=== PATIENT | female | born 1975 | race Caucasian/White ===

== ENCOUNTER 2018-08-18 01:59 | Emergency (ER) | payer OTHER ==
[~2018-08-18] VITALS: Ht 170.2 cm; Wt 59.0 kg
[~2018-08-18 01:59] MED LIST: FURO-144 PO; SPIR50TA5 PO; TEMA15CA PO
--- NOTE | 2018-08-18 03:00 | NUR ---
TO BED 1 AMBULATORY C/O "ACSITES" X1 WEEK, CHRONIC ABDOMINAL PAIN. PT AAOX4 NO ACUTE DISTRESS NOTED, RESP EVEN AND UNLABORED. PENDING ER MD BARAHONA.
--- NOTE | 2018-08-18 03:26 | NUR ---
ER MD AT BEDSIDE TO EVAL PT WITH ORDERS RECEIVED. WILL CARRY OUT ORDERS.
--- NOTE | 2018-08-18 03:40 | NUR ---
URINE SAMPLE COLLECTED AND SENT TO LAB.
[2018-08-18 04:14] LABS: APPEARANCE,URINE CLEAR (CLEAR); BILIRUBIN,URINE NEGATIVE (NEGATIVE); BLOOD, URINE NEGATIVE Ery/uL (NEGATIVE); COLOR,URINE YELLOW (YELLOW); KETONES,URINE NEGATIVE (NEGATIVE); LEUKOCYTE ESTERASE ,URINE TRACE (NEGATIVE); NITRITE, URINE NEGATIVE (NEGATIVE); PROTEIN,URINE NEGATIVE (NEGATIVE); UGLUCOSE NEGATIVE (NEGATIVE); UROBILINOGEN,URINE 0.2 EU/dL (0.2)
[2018-08-18 04:15] LABS: BASOPHILS # (AUTO) 0.1 /CMM (0.0-0.2); BASOPHILS % (AUTO) 0.8 % (0.0-2.0); EOSINOPHILS % (AUTO) 0.7 % (0.0-6.0); HEMATOCRIT 32 % (33-45); HEMOGLOBIN 10.5 g/dL (11.5-14.8); LYMPHOCYTES # (AUTO) 2.3 /CMM (0.8-4.8); MEAN CORPUSCULAR HGB CONC 33 g/dl (31.0-36.0); MEAN CORPUSCULAR VOLUME 84 fL (82-100); MONOCYTES # (AUTO) 0.9 /CMM (0.1-1.30); NEUTROPHILS % (AUTO) 67.5 % (43.0-81.0); PLATELET COUNT (AUTO) 241 /CMM (150-450); RED BLOOD CELL COUNT(AUTO) 3.82 MIL/uL (4.0-5.2); WHITE BLOOD COUNT (AUTO) 10.4 K/uL (4.3-11.0)
[2018-08-18 04:24] LABS: BACTERIA,URINE None seen /HPF (None Seen); RBC,URINE 0-2 /HPF (0-2); SQUAMOUS EPITHELIAL CELL,UR Moderate /HPF (None Seen); WBC,URINE 0-2 /HPF (0-3)
[2018-08-18 04:25] LABS: HYALINE CASTS, URINE Few /LPF (None Seen); MUCUS,URINE Few /LPF (None Seen)
[2018-08-18] MEDS ORDERED: ONDANSETRON HCL/PF - ER 4 MG/2 ML VIAL IV ONE (04:30)
[2018-08-18 04:32] LABS: CALCIUM, SERUM 8.3 mg/dL (8.5-10.1); CREATININE 1.5 mg/dL (0.6-1.3); POTASSIUM 4.2 mmol/L (3.5-5.1)
[2018-08-18 04:37] LABS: BILIRUBIN,DIRECT 0.3 mg/dL (0.0-0.2); BILIRUBIN,TOTAL 0.5 mg/dL (0.2-1.0); TOTAL PROTEIN, SERUM 8.5 g/dL (6.4-8.2)
[2018-08-18] MEDS ORDERED: ONDANSETRON HCL/PF 4 MG/2 ML VIAL ONE (04:42)
--- NOTE | 2018-08-18 05:05 | NUR ---
ER MD AT BEDSIDE TALKING TO PT REGARDING LAB RESULTS AND DISCHARGE.
--- NOTE | 2018-08-18 06:21 | NUR ---
Patient discharged to home in stable condition. Written and verbal after care instructions given. Patient verbalizes understanding of instruction. IV removed. Catheter intact and site benign. Pressure and 4x4 applied to site. No bleeding noted.
[2018-08-18 06:22] VITALS: BP 127/63
== END 2018-08-18 06:23 | disposition home or self-care (01) ==
LOC: ER 02:00
DX: R18.8 Other ascites (principal); R94.31 Abnormal electrocardiogram [ECG] [EKG]; I25.10 Atherosclerotic heart disease of native coronary artery without angina pectoris; F41.9 Anxiety disorder, unspecified; I25.2 Old myocardial infarction; Z87.19 Personal history of other diseases of the digestive system; Z98.890 Other specified postprocedural states; Z85.3 Personal history of malignant neoplasm of breast; Z79.899 Other long term (current) drug therapy
CPT/HCPCS: 36415; 80048; 80076; 81001; 83690; 84484; 84702; 85025; 85730; 93005; 96374; 99284; A4606; J2405; Z7610; 81000-TC

== ENCOUNTER 2018-08-30 04:19 | Inpatient (IN) | payer OTHER ==
[~2018-08-30] VITALS: Ht 171.4 cm; Wt 68.0 kg
[2018-08-30] MEDS ORDERED: MORPHINE SULFATE INJ 2 MG/ML DISP.SYRIN IV ONE (04:30)
[2018-08-30] MEDS ORDERED: ONDANSETRON HCL/PF 4 MG/2 ML VIAL IVP ONE (04:30)
[2018-08-30] MEDS ORDERED: ONDANSETRON HCL/PF 4 MG/2 ML VIAL ONE (04:36)
[2018-08-30] MEDS ORDERED: MORPHINE SULFATE INJ 4 MG/ML DISP.SYRIN ONE (04:47)
[2018-08-30] MEDS ORDERED: SPIR25TA6 PO (05:00)
[2018-08-30] MEDS ORDERED: TEMA15CA PO (05:00)
[2018-08-30] MEDS ORDERED: BUME2TAB3 PO (05:00)
[2018-08-30 05:04] LABS: BASOPHILS # (AUTO) 0.1 /CMM (0.0-0.2); BASOPHILS % (AUTO) 1.1 % (0.0-2.0); EOSINOPHILS % (AUTO) 0.5 % (0.0-6.0); HEMATOCRIT 32 % (33-45); HEMOGLOBIN 10.4 g/dL (11.5-14.8); LYMPHOCYTES # (AUTO) 1.6 /CMM (0.8-4.8); MEAN CORPUSCULAR HGB CONC 33 g/dl (31.0-36.0); MEAN CORPUSCULAR VOLUME 91 fL (82-100); MONOCYTES # (AUTO) 1.7 /CMM (0.1-1.30); MONOCYTES % (AUTO) 17.1 % (2.0-12.0); NEUTROPHILS # (AUTO) 6.2 /CMM (1.8-8.9); NEUTROPHILS % (AUTO) 64.3 % (43.0-81.0); PLATELET COUNT (AUTO) 277 /CMM (150-450); WHITE BLOOD COUNT (AUTO) 9.7 K/uL (4.3-11.0)
[2018-08-30 05:14] LABS: CALCIUM, SERUM 8.2 mg/dL (8.5-10.1); CREATININE 1.6 mg/dL (0.6-1.3); POTASSIUM 3.8 mmol/L (3.5-5.1)
[2018-08-30 05:20] LABS: ALBUMIN 2.1 g/dL (3.4-5.0); BILIRUBIN,DIRECT 0.4 mg/dL (0.0-0.2); BILIRUBIN,TOTAL 0.6 mg/dL (0.2-1.0); TOTAL PROTEIN, SERUM 7.4 g/dL (6.4-8.2)
[2018-08-30] MEDS ORDERED: PIPERACILLIN /TAZOBACTAM 3.375 G VIAL IV ONE (05:57)
[2018-08-30] MEDS ORDERED: PIPERACILLIN /TAZOBACTAM 3.375 G in IV D5W 50 ML IV ONE (06:00)
[2018-08-30] MEDS ORDERED: IV NS 0.9% 1,000 ML BAG IV ONE (06:00)
[2018-08-30 06:19] LABS: APPEARANCE,URINE SL CLOUDY (CLEAR); BILIRUBIN,URINE NEGATIVE (NEGATIVE); BLOOD, URINE NEGATIVE Ery/uL (NEGATIVE); COLOR,URINE YELLOW (YELLOW); KETONES,URINE NEGATIVE (NEGATIVE); LEUKOCYTE ESTERASE ,URINE TRACE (NEGATIVE); NITRITE, URINE NEGATIVE (NEGATIVE); PH,URINE 5.5 (5.0-8.0); PROTEIN,URINE NEGATIVE (NEGATIVE); UGLUCOSE NEGATIVE (NEGATIVE); UROBILINOGEN,URINE 0.2 EU/dL (0.2)
[2018-08-30] MEDS ORDERED: MAG HYDROX/AL HYDROX/SIMETH 30 ML UDC PO PRN (07:00)
[2018-08-30] MEDS ORDERED: ZOLPIDEM TARTRATE 5 MG TABLET PO PRN (07:00)
[2018-08-30] MEDS ORDERED: ACETAMINOPHEN 325 MG TABLET PO PRN (07:00)
[2018-08-30] MEDS ORDERED: ONDANSETRON HCL/PF 4 MG/2 ML VIAL IVP PRN (07:00)
[2018-08-30] MEDS ORDERED: MAGNESIUM HYDROXIDE 30 ML UDC PO PRN (07:00)
[2018-08-30] MEDS ORDERED: Z GUARD REMEDY 2 OZ OINT TP PRN (07:00)
[2018-08-30 07:18] LABS: RBC,URINE NONE SEEN /HPF (0-2); WBC,URINE 0-2 /HPF (0-3)
[2018-08-30 07:19] LABS: BACTERIA,URINE None seen /HPF (None Seen); SQUAMOUS EPITHELIAL CELL,UR Few /HPF (None Seen)
[2018-08-30 08:00] VITALS: BP 83/52
[2018-08-30] MEDS ORDERED: PANT40TA2 PO (08:20)
[2018-08-30] MEDS ORDERED: LORA-259 PO (08:20)
[2018-08-30] MEDS: HYDROCODONE/APAP 5/325MG 1 EACH TABLET PO PRN ×2 (10:12→16:02)
[2018-08-30] MEDS ORDERED: LIDOCAINE 1% INJ 50 ML MDV IJ ONE (10:41)
[2018-08-30] MEDS ORDERED: LORAZEPAM INJ 2 MG/ML VIAL IV ONE (11:30)
[2018-08-30] MEDS ORDERED: ALBUMIN 25% 12.5 GM in PREMIX 1 EA IV PRN (13:00)
[2018-08-30] MEDS ORDERED: LORAZEPAM INJ 2 MG/ML VIAL IV PRN (14:00)
[2018-08-30] MEDS ORDERED: PIPERACILLIN /TAZOBACTAM 3.375 G in IV D5W 100 ML IV SCH (14:00)
[2018-08-30 16:00] VITALS: BP 88/59
[2018-08-30] MEDS ORDERED: PIPERACILLIN /TAZOBACTAM 3.375 G in IV D5W 50 ML IV SCH (18:00)
[2018-08-30 20:00] VITALS: BP 94/44
[2018-08-30] MEDS: CEFTRIAXONE 1 G in IV D5W 50 ML IV SCH (20:02)
[2018-08-30 20:32] VITALS: BP 94/44
[2018-08-30] MEDS: HYDROCODONE/APAP 10/325MG 1 EA TABLET PO PRN (20:35)
[2018-08-31 02:09] VITALS: BP 95/59
[2018-08-31] MEDS: HYDROCODONE/APAP 10/325MG 1 EA TABLET PO PRN (02:09)
[2018-08-31 03:00] VITALS: BP 100/67
[2018-08-31 06:36] LABS: BASOPHILS # (AUTO) 0.1 /CMM (0.0-0.2); BASOPHILS % (AUTO) 0.8 % (0.0-2.0); EOSINOPHILS % (AUTO) 1.5 % (0.0-6.0); HEMATOCRIT 30 % (33-45); HEMOGLOBIN 9.9 g/dL (11.5-14.8); LYMPHOCYTES # (AUTO) 1.2 /CMM (0.8-4.8); LYMPHOCYTES % (AUTO) 15.4 % (20.0-44.0); MEAN CORPUSCULAR HGB CONC 33 g/dl (31.0-36.0); MEAN CORPUSCULAR VOLUME 90 fL (82-100); MONOCYTES # (AUTO) 1.2 /CMM (0.1-1.30); MONOCYTES % (AUTO) 16.2 % (2.0-12.0); NEUTROPHILS % (AUTO) 66.1 % (43.0-81.0); PLATELET COUNT (AUTO) 230 /CMM (150-450); RED BLOOD CELL COUNT(AUTO) 3.33 MIL/uL (4.0-5.2); WHITE BLOOD COUNT (AUTO) 7.6 K/uL (4.3-11.0)
[2018-08-31 06:54] LABS: ALBUMIN 1.7 g/dL (3.4-5.0); BILIRUBIN,TOTAL 0.6 mg/dL (0.2-1.0); MAGNESIUM 1.3 mg/dL (1.8-2.4); PHOSPHORUS 3.6 mg/dL (2.5-4.9); POTASSIUM 4.4 mmol/L (3.5-5.1); TOTAL PROTEIN, SERUM 6.5 g/dL (6.4-8.2)
[2018-08-31 07:24] LABS: EOSINOPHILS % (MANUAL) 2 % (0-4); LYMPHOCYTES % (MANUAL) 19 % (16-48); MONOCYTES % (MANUAL) 16 % (0-11.0); NEUTROPHILS % (MANUAL) 63 (42-76)
[2018-08-31 08:00] VITALS: BP 95/74
[2018-08-31] MEDS: THIAMINE HCL 100 MG TABLET PO SCH (08:19)
[2018-08-31] MEDS: FOLIC ACID 1 MG TABLET PO SCH (08:19)
[2018-08-31] MEDS: Magnesium 1GM/D5W 100ML PREMIX 100 ML IV SCH ×3 (10:38→12:40)
[2018-08-31] MEDS ORDERED: IV NS 0.9% 1,000 ML IV PRN (12:00)
[2018-08-31] MEDS: oxyCODONE IR immediate release 5 MG PO PRN ×2 (15:00→20:10)
[2018-08-31 16:00] VITALS: BP 113/69
[2018-08-31 16:36] LABS: APPEARANCE,URINE SL CLOUDY (CLEAR); BILIRUBIN,URINE NEGATIVE (NEGATIVE); BLOOD, URINE NEGATIVE Ery/uL (NEGATIVE); COLOR,URINE YELLOW (YELLOW); KETONES,URINE TRACE (NEGATIVE); LEUKOCYTE ESTERASE ,URINE NEGATIVE (NEGATIVE); NITRITE, URINE NEGATIVE (NEGATIVE); PH,URINE 5.5 (5.0-8.0); PROTEIN,URINE NEGATIVE (NEGATIVE); UGLUCOSE NEGATIVE (NEGATIVE); UROBILINOGEN,URINE 0.2 EU/dL (0.2)
[2018-08-31 16:53] LABS: URINE SODIUM, RANDOM < 5 mmol/l (40-220); URINE TOTAL PROTEIN 19.9 mg/dL (0-11.9)
[2018-08-31 18:32] LABS: EOSINOPHIL,URINE None Seen
[2018-08-31] MEDS: GABAPENTIN 300 MG CAPSULE PO SCH (18:53)
[2018-08-31] MEDS: CEFTRIAXONE 1 G in IV D5W 50 ML IV SCH (19:47)
[2018-08-31 20:00] VITALS: BP 102/72
[2018-08-31] MEDS: PANTOPRAZOLE 40 MG VIAL IV SCH (22:29)
[2018-09-01] MEDS: oxyCODONE IR immediate release 5 MG PO PRN ×4 (01:26→20:22)
[2018-09-01 06:41] LABS: BASOPHILS # (AUTO) 0.1 /CMM (0.0-0.2); EOSINOPHILS % (AUTO) 1.8 % (0.0-6.0); HEMATOCRIT 31 % (33-45); HEMOGLOBIN 10.3 g/dL (11.5-14.8); LYMPHOCYTES # (AUTO) 1.6 /CMM (0.8-4.8); LYMPHOCYTES % (AUTO) 17.8 % (20.0-44.0); MEAN CORPUSCULAR HGB CONC 33 g/dl (31.0-36.0); MEAN CORPUSCULAR VOLUME 90 fL (82-100); MONOCYTES # (AUTO) 1.4 /CMM (0.1-1.30); MONOCYTES % (AUTO) 15.7 % (2.0-12.0); NEUTROPHILS # (AUTO) 5.7 /CMM (1.8-8.9); NEUTROPHILS % (AUTO) 63.7 % (43.0-81.0); PLATELET COUNT (AUTO) 257 /CMM (150-450)
[2018-09-01 06:55] LABS: CALCIUM, SERUM 7.9 mg/dL (8.5-10.1); CREATININE 1.8 mg/dL (0.6-1.3); MAGNESIUM 2.1 mg/dL (1.8-2.4); POTASSIUM 5.3 mmol/L (3.5-5.1)
[2018-09-01] MEDS: THIAMINE HCL 100 MG TABLET PO SCH (07:26)
[2018-09-01] MEDS: FOLIC ACID 1 MG TABLET PO SCH (07:27)
[2018-09-01] MEDS: GABAPENTIN 300 MG CAPSULE PO SCH ×3 (07:27→16:51)
[2018-09-01 08:00] VITALS: BP 99/71
[2018-09-01] MEDS: FUROSEMIDE 40 MG/4 ML VIAL IV SCH ×2 (11:57→16:51)
[2018-09-01] MEDS: ALBUMIN 25% 25 GM in PREMIX 1 EA IV SCH ×2 (11:58→22:54)
[2018-09-01 12:08] LABS: PTH, INTACT 88 pg/mL (15-65)
[2018-09-01 16:00] VITALS: BP 98/61
[2018-09-01 20:00] VITALS: BP 100/66
[2018-09-01] MEDS: CEFTRIAXONE 1 G in IV D5W 50 ML IV SCH (20:22)
[2018-09-01] MEDS: PANTOPRAZOLE 40 MG VIAL IV SCH (22:54)
[2018-09-02] MEDS: oxyCODONE IR immediate release 5 MG PO PRN ×3 (03:36→10:45)
[2018-09-02 07:38] LABS: ALBUMIN 2.3 g/dL (3.4-5.0); CALCIUM, SERUM 8.3 mg/dL (8.5-10.1); CREATININE 1.4 mg/dL (0.6-1.3); POTASSIUM 5.1 mmol/L (3.5-5.1); TOTAL PROTEIN, SERUM 7.2 g/dL (6.4-8.2)
[2018-09-02 08:00] VITALS: BP 112/74
[2018-09-02] MEDS: THIAMINE HCL 100 MG TABLET PO SCH (08:36)
[2018-09-02] MEDS: GABAPENTIN 300 MG CAPSULE PO SCH ×3 (08:36→17:56)
[2018-09-02] MEDS: FOLIC ACID 1 MG TABLET PO SCH (08:36)
[2018-09-02] MEDS ORDERED: BUMETANIDE INJ 2 MG in IV NS 0.9% 32 ML IV ONE (12:30)
[2018-09-02 16:00] VITALS: BP 96/60
[2018-09-02 16:05] VITALS: BP 96/60
[2018-09-02 20:00] VITALS: BP 105/65
[2018-09-02] MEDS: CEFTRIAXONE 1 G in IV D5W 50 ML IV SCH (20:31)
[2018-09-02] MEDS: HYDROMORPHONE 1 MG/1 ML DISP.SYRIN IV PRN (22:20)
[2018-09-02] MEDS: PANTOPRAZOLE 40 MG VIAL IV SCH (22:26)
[2018-09-02] MEDS ORDERED: hydrOXYzine PAMOATE 25 MG CAPSULE PO PRN (23:30)
[2018-09-02] MEDS: DOXYCYCLINE 100 MG in IV D5W 100 ML IV SCH (23:30)
[2018-09-02] MEDS ORDERED: DOXYCYCLINE HYCLATE (100 MG) 100 MG TABLET PO ONE (23:45)
[2018-09-03] MEDS ORDERED: DOXYCYCLINE HYCLATE (100 MG) 100 MG TABLET PO SCH
[2018-09-03] MEDS: oxyCODONE IR immediate release 5 MG PO PRN ×3 (01:00→20:07)
[2018-09-03 06:57] LABS: BASOPHILS # (AUTO) 0.1 /CMM (0.0-0.2); BASOPHILS % (AUTO) 0.8 % (0.0-2.0); EOSINOPHILS % (AUTO) 0.9 % (0.0-6.0); HEMATOCRIT 29 % (33-45); HEMOGLOBIN 9.6 g/dL (11.5-14.8); LYMPHOCYTES # (AUTO) 1.4 /CMM (0.8-4.8); LYMPHOCYTES % (AUTO) 12.1 % (20.0-44.0); MEAN CORPUSCULAR HGB CONC 33 g/dl (31.0-36.0); MEAN CORPUSCULAR VOLUME 90 fL (82-100); MONOCYTES # (AUTO) 1.7 /CMM (0.1-1.30); MONOCYTES % (AUTO) 14.5 % (2.0-12.0); NEUTROPHILS # (AUTO) 8.5 /CMM (1.8-8.9); NEUTROPHILS % (AUTO) 71.7 % (43.0-81.0); PLATELET COUNT (AUTO) 237 /CMM (150-450); RED BLOOD CELL COUNT(AUTO) 3.26 MIL/uL (4.0-5.2); WHITE BLOOD COUNT (AUTO) 11.9 K/uL (4.3-11.0)
[2018-09-03 07:08] LABS: CALCIUM, SERUM 8.5 mg/dL (8.5-10.1); CREATININE 1.4 mg/dL (0.6-1.3); POTASSIUM 5.6 mmol/L (3.5-5.1)
[2018-09-03 08:00] VITALS: BP 109/65
[2018-09-03] MEDS: THIAMINE HCL 100 MG TABLET PO SCH (09:01)
[2018-09-03] MEDS: GABAPENTIN 300 MG CAPSULE PO SCH ×3 (09:01→16:32)
[2018-09-03] MEDS: FOLIC ACID 1 MG TABLET PO SCH (09:01)
[2018-09-03] MEDS: DOXYCYCLINE 100 MG in IV D5W 100 ML IV SCH ×2 (09:02→21:07)
[2018-09-03 09:17] LABS: *SPE A/G RATIO 0.5 (0.7-1.7); *SPE ALBUMIN 2.1 g/dL (2.9-4.4); *SPE ALPHA-1-GLOBULIN 0.3 g/dL (0.0-0.4); *SPE ALPHA-2-GLOBULIN 0.4 g/dL (0.4-1.0); *SPE GLOBULIN, TOTAL 3.9 g/dL (2.2-3.9); *SPE M-SPIKE Not Observed g/dL (Not Observed); *SPEGAMMA GLOBULIN 2.2 g/dL (0.4-1.8)
[2018-09-03] MEDS ORDERED: BUMETANIDE INJ 0.25 MG/ML VIAL IV ONE (11:30)
[2018-09-03] MEDS: LORAZEPAM 0.5 MG TABLET PO PRN ×2 (12:37→22:02)
[2018-09-03 16:00] VITALS: BP 102/61
[2018-09-03] MEDS: HYDROMORPHONE 1 MG/1 ML DISP.SYRIN IV PRN (16:33)
[2018-09-03] MEDS: CEFTRIAXONE 1 G in IV D5W 50 ML IV SCH (20:05)
[2018-09-03 20:42] VITALS: BP 87/50
[2018-09-03] MEDS: PANTOPRAZOLE 40 MG VIAL IV SCH (21:09)
[2018-09-03] MEDS ORDERED: HYDROMORPHONE INJ 2 MG/ML DISP.SYRIN ONE (22:42)
[2018-09-03] MEDS: HYDROMORPHONE INJ 2 MG/ML DISP.SYRIN IV PRN (23:06)
[2018-09-04] MEDS: oxyCODONE IR immediate release 5 MG PO PRN ×3 (02:44→20:00)
[2018-09-04] MEDS: HYDROMORPHONE INJ 2 MG/ML DISP.SYRIN IV PRN ×3 (04:37→13:09)
[2018-09-04 08:00] VITALS: BP 97/70
[2018-09-04] MEDS: GABAPENTIN 300 MG CAPSULE PO SCH ×3 (08:18→16:57)
[2018-09-04] MEDS: THIAMINE HCL 100 MG TABLET PO SCH (08:18)
[2018-09-04] MEDS: FOLIC ACID 1 MG TABLET PO SCH (08:18)
[2018-09-04] MEDS: DOXYCYCLINE 100 MG in IV D5W 100 ML IV SCH ×2 (08:38→21:24)
[2018-09-04 13:51] LABS: BASOPHILS # (AUTO) 0.1 /CMM (0.0-0.2); BASOPHILS % (AUTO) 0.9 % (0.0-2.0); EOSINOPHILS % (AUTO) 1.5 % (0.0-6.0); HEMATOCRIT 30 % (33-45); HEMOGLOBIN 9.8 g/dL (11.5-14.8); LYMPHOCYTES # (AUTO) 1.6 /CMM (0.8-4.8); LYMPHOCYTES % (AUTO) 15.2 % (20.0-44.0); MEAN CORPUSCULAR HGB CONC 33 g/dl (31.0-36.0); MEAN CORPUSCULAR VOLUME 89 fL (82-100); MONOCYTES # (AUTO) 1.9 /CMM (0.1-1.30); MONOCYTES % (AUTO) 18.6 % (2.0-12.0); NEUTROPHILS # (AUTO) 6.7 /CMM (1.8-8.9); NEUTROPHILS % (AUTO) 63.8 % (43.0-81.0); PLATELET COUNT (AUTO) 253 /CMM (150-450); RED BLOOD CELL COUNT(AUTO) 3.32 MIL/uL (4.0-5.2); WHITE BLOOD COUNT (AUTO) 10.4 K/uL (4.3-11.0)
[2018-09-04 14:06] LABS: ALBUMIN 2.1 g/dL (3.4-5.0); BILIRUBIN,TOTAL 0.8 mg/dL (0.2-1.0); CALCIUM, SERUM 8.5 mg/dL (8.5-10.1); CREATININE 1.2 mg/dL (0.6-1.3); MAGNESIUM 1.6 mg/dL (1.8-2.4); PHOSPHORUS 3.5 mg/dL (2.5-4.9)
[2018-09-04 15:47] LABS: CALCIUM, SERUM 8.3 mg/dL (8.5-10.1); CREATININE 1.2 mg/dL (0.6-1.3); POTASSIUM 5.2 mmol/L (3.5-5.1)
[2018-09-04 16:00] VITALS: BP 116/67
[2018-09-04 16:23] LABS: BASOPHILS # (AUTO) 0.1 /CMM (0.0-0.2); BASOPHILS % (AUTO) 0.8 % (0.0-2.0); EOSINOPHILS % (AUTO) 1.7 % (0.0-6.0); HEMATOCRIT 30 % (33-45); HEMOGLOBIN 9.9 g/dL (11.5-14.8); LYMPHOCYTES # (AUTO) 1.5 /CMM (0.8-4.8); MEAN CORPUSCULAR HGB CONC 33 g/dl (31.0-36.0); MEAN CORPUSCULAR VOLUME 90 fL (82-100); MONOCYTES # (AUTO) 1.9 /CMM (0.1-1.30); MONOCYTES % (AUTO) 18.9 % (2.0-12.0); NEUTROPHILS # (AUTO) 6.5 /CMM (1.8-8.9); NEUTROPHILS % (AUTO) 63.6 % (43.0-81.0); PLATELET COUNT (AUTO) 255 /CMM (150-450); WHITE BLOOD COUNT (AUTO) 10.2 K/uL (4.3-11.0)
[2018-09-04] MEDS ORDERED: SODIUM POLYSTYRENE SULFONATE 15 G/60 ML BOTTLE PO ONE (16:30)
[2018-09-04] MEDS: MAGNESIUM OXIDE 400 MG TABLET PO SCH (16:57)
[2018-09-04] MEDS: LACTULOSE 10 G/15 ML UDC (PYXIS) PO SCH (18:40)
[2018-09-04] MEDS: CEFTRIAXONE 1 G in IV D5W 50 ML IV SCH (19:39)
[2018-09-04 20:00] VITALS: BP 125/60
[2018-09-04] MEDS: PANTOPRAZOLE 40 MG VIAL IV SCH (21:47)
[2018-09-04 23:00] VITALS: BP 120/83
[2018-09-05] MEDS: LACTULOSE 10 G/15 ML UDC (PYXIS) PO SCH ×3 (00:33→11:38)
[2018-09-05] MEDS: oxyCODONE IR immediate release 5 MG PO PRN ×3 (01:20→14:48)
[2018-09-05] MEDS: HYDROMORPHONE INJ 2 MG/ML DISP.SYRIN IV PRN ×2 (04:57→09:20)
[2018-09-05 07:13] LABS: BASOPHILS # (AUTO) 0.1 /CMM (0.0-0.2); EOSINOPHILS % (AUTO) 1.7 % (0.0-6.0); HEMATOCRIT 28 % (33-45); HEMOGLOBIN 9.5 g/dL (11.5-14.8); LYMPHOCYTES # (AUTO) 1.2 /CMM (0.8-4.8); MEAN CORPUSCULAR HGB CONC 34 g/dl (31.0-36.0); MEAN CORPUSCULAR VOLUME 89 fL (82-100); MONOCYTES # (AUTO) 1.9 /CMM (0.1-1.30); MONOCYTES % (AUTO) 21.1 % (2.0-12.0); NEUTROPHILS # (AUTO) 5.5 /CMM (1.8-8.9); NEUTROPHILS % (AUTO) 62.2 % (43.0-81.0); PLATELET COUNT (AUTO) 221 /CMM (150-450); RED BLOOD CELL COUNT(AUTO) 3.18 MIL/uL (4.0-5.2); WHITE BLOOD COUNT (AUTO) 8.9 K/uL (4.3-11.0)
[2018-09-05 07:43] LABS: CALCIUM, SERUM 8.3 mg/dL (8.5-10.1); CREATININE 1.2 mg/dL (0.6-1.3); MAGNESIUM 1.5 mg/dL (1.8-2.4); PHOSPHORUS 3.6 mg/dL (2.5-4.9); POTASSIUM 4.2 mmol/L (3.5-5.1); TOTAL PROTEIN, SERUM 6.9 g/dL (6.4-8.2)
[2018-09-05 08:00] VITALS: BP 107/78
[2018-09-05] MEDS: MAGNESIUM OXIDE 400 MG TABLET PO SCH (08:07)
[2018-09-05] MEDS: THIAMINE HCL 100 MG TABLET PO SCH (08:07)
[2018-09-05] MEDS: FOLIC ACID 1 MG TABLET PO SCH (08:07)
[2018-09-05] MEDS: GABAPENTIN 300 MG CAPSULE PO SCH ×2 (08:07→12:10)
[2018-09-05] MEDS: DOXYCYCLINE 100 MG in IV D5W 100 ML IV SCH (09:06)
[2018-09-05 09:25] LABS: BAND % (MANUAL) 1 % (0.0-5.0); EOSINOPHILS % (MANUAL) 1 % (0-4); LYMPHOCYTES % (MANUAL) 16 % (16-48); MONOCYTES % (MANUAL) 22 % (0-11.0); NEUTROPHILS % (MANUAL) 60 (42-76)
[2018-09-05] MEDS ORDERED: LIDOCAINE 1% INJ 50 ML MDV IJ ONE (09:30)
[2018-09-05] MEDS: Magnesium 1GM/D5W 100ML PREMIX 100 ML IV SCH ×2 (10:31→11:41)
[2018-09-05] MEDS ORDERED: GABA300C PO (12:00)
== END 2018-09-05 17:10 | disposition home or self-care (01) | DRG 280 ==
LOC: ER 04:20 → TELE 06:42 → MED 09:03
PROVIDERS: ADMIT Nurse Practitioner Acute Care; ATTEND Internal Medicine
PROC: 0W9G3ZZ Drainage of Peritoneal Cavity, Percutaneous Approach (ICD-10-PCS; principal; 2018-08-30)
PROC: 0W9G3ZZ Drainage of Peritoneal Cavity, Percutaneous Approach (ICD-10-PCS; 2018-09-05)
DX: K70.31 Alcoholic cirrhosis of liver with ascites (principal); K70.40 Alcoholic hepatic failure without coma; N17.0 Acute kidney failure with tubular necrosis; K76.6 Portal hypertension; E87.2 Acidosis; E87.1 Hypo-osmolality and hyponatremia; E83.42 Hypomagnesemia; E87.5 Hyperkalemia; I25.2 Old myocardial infarction; N39.0 Urinary tract infection, site not specified; F41.9 Anxiety disorder, unspecified; F10.239 Alcohol dependence with withdrawal, unspecified; E86.0 Dehydration; E86.1 Hypovolemia; D63.8 Anemia in other chronic diseases classified elsewhere; I25.10 Atherosclerotic heart disease of native coronary artery without angina pectoris; R74.0 Nonspecific elevation of levels of transaminase and lactic acid dehydrogenase [LDH]; D24.1 Benign neoplasm of right breast; F11.20 Opioid dependence, uncomplicated; G89.4 Chronic pain syndrome; L03.116 Cellulitis of left lower limb; L03.115 Cellulitis of right lower limb; K86.0 Alcohol-induced chronic pancreatitis; T51.0X1A Toxic effect of ethanol, accidental (unintentional), initial encounter; Y90.0 Blood alcohol level of less than 20 mg/100 ml; K82.8 Other specified diseases of gallbladder; I87.2 Venous insufficiency (chronic) (peripheral)
CPT/HCPCS: 36415; 71045-TC; 76641-TC; 76705-TC; 76942-TC; 80048-TC; 80053-TC; 80061-TC; 80076-TC; 80305; 81000-TC; 82040-TC; 82140-TC; 82550-TC; 82570-TC; 83605-TC; 83690-TC; 83735-TC; 83970; 84100-TC; 84155; 84155-TC; 84165; 84300-TC; 84484-TC; 84703-TC; 85025-TC; 85730-TC; 87040-TC; 87070-TC; 87081-TC; 87086-TC; 89051-TC; A4216; C9113; G0378; G0480; J0696; J1170; J1940; J2060; J2270; J2405; J2543; J3475; J3490; J7030; J7050; J7060; P9047; Q0177

== ENCOUNTER 2018-10-19 01:02 | Inpatient (IN) | payer MEDICAID, OTHER ==
[~2018-10-19] VITALS: Ht 167.6 cm; Wt 68.0 kg
[2018-10-19] VITALS (31 sets, daily range): BP systolic 83–117; BP diastolic 50–80
[~2018-10-19 01:02] MED LIST changes: +BUME2TAB3 PO; -FURO-144 PO; +GABA300C PO; +LORA-259 PO; +PANT40TA2 PO
--- NOTE | 2018-10-19 01:30 | NUR ---
PT CAME TO EMERGENCY DEPT. COMPLAINING OF ABD PAIN FOR 2 DAYS, STATES THAT SHE HAS BEEN VOMITTING AND HAVING DIARRHEA THAT WAS "RED" FOR THE PAST 2 DAYS. PALE, DRY, SKIN NOTED. PT AAXO4. PT RESPIRATIONS EVEN AND UNLABORED. PT PUT ON THE MONITOR AND PENDING EVAL FROM ER MD.
[2018-10-19 01:55] LABS: BASOPHILS # (AUTO) 0.1 /CMM (0.0-0.2); BASOPHILS % (AUTO) 1.2 % (0.0-2.0); EOSINOPHILS % (AUTO) 0.5 % (0.0-6.0); LYMPHOCYTES # (AUTO) 1.7 /CMM (0.8-4.8); MEAN CORPUSCULAR HGB CONC 32 g/dl (31.0-36.0); MEAN CORPUSCULAR VOLUME 92 fL (82-100); MONOCYTES # (AUTO) 1.1 /CMM (0.1-1.30); MONOCYTES % (AUTO) 9.1 % (2.0-12.0); NEUTROPHILS # (AUTO) 8.9 /CMM (1.8-8.9); NEUTROPHILS % (AUTO) 75.2 % (43.0-81.0); PLATELET COUNT (AUTO) 216 /CMM (150-450); WHITE BLOOD COUNT (AUTO) 11.8 K/uL (4.3-11.0)
[2018-10-19 01:56] LABS: RED BLOOD CELL COUNT(AUTO) 1.94 MIL/uL (4.0-5.2)
[2018-10-19 01:57] LABS: HEMATOCRIT 18 % (33-45); HEMOGLOBIN 5.7 g/dL (11.5-14.8)
[2018-10-19] MEDS ORDERED: ONDANSETRON HCL/PF 4 MG/2 ML VIAL IVP ONE (02:00)
[2018-10-19 02:13] LABS: ALBUMIN 2.7 g/dL (3.4-5.0); BILIRUBIN,DIRECT 1.1 mg/dL (0.0-0.2); BILIRUBIN,TOTAL 1.8 mg/dL (0.2-1.0); CALCIUM, SERUM 9.1 mg/dL (8.5-10.1); CREATININE 5.7 mg/dL (0.6-1.3); TOTAL PROTEIN, SERUM 6.9 g/dL (6.4-8.2)
[2018-10-19] MEDS ORDERED: PANTOPRAZOLE 40 MG VIAL ONE ×2 (02:13→03:08)
[2018-10-19] MEDS ORDERED: ONDANSETRON HCL/PF 4 MG/2 ML VIAL ONE (02:13)
[2018-10-19 02:15] LABS: POTASSIUM 6.5 mmol/L (3.5-5.1)
[2018-10-19] MEDS ORDERED: OCTREOTIDE 100 MCG/ML VIAL ONE (02:15)
--- NOTE | 2018-10-19 02:22 | NUR ---
[facility] RATNA luther.
[2018-10-19] MEDS ORDERED: PANTOPRAZOLE 80 MG in IV NS 0.9% 500 ML IV ONE (02:30)
[2018-10-19] MEDS ORDERED: PANTOPRAZOLE 80 MG in IV NS 0.9% 100 ML IV ONE (02:30)
[2018-10-19] MEDS ORDERED: OCTREOTIDE 50 MCG/ML AMPUL IV ONE (02:30)
[2018-10-19] MEDS ORDERED: ALBUTEROL FS 2.5 MG/3 ML VIAL.NEB NEB ONE (02:30)
[2018-10-19] MEDS ORDERED: DEXTROSE 50%-WATER 50 ML DISP.SYRIN IV ONE (02:30)
[2018-10-19] MEDS ORDERED: INSULIN REGULAR, HUMAN 100 UNIT/ML 10 ML VIAL IV ONE (02:30)
[2018-10-19] MEDS ORDERED: OCTREOTIDE 1,250 MCG in IV NS 0.9% 250 ML IV ONE (02:30)
--- NOTE | 2018-10-19 02:30 | NUR ---
PT SALINE LOCK INFILTRATED.
--- NOTE | 2018-10-19 02:30 | NUR ---
PT REFUSED FLOREZ CATHETER. ER AWARE.
--- NOTE | 2018-10-19 02:46 | NUR ---
[address]nd call Dr[address] Allen paged.
--- NOTE | 2018-10-19 03:18 | NUR ---
[facility] RATNA Allen paged 3rd time & KARISHMA Singh paged.
[2018-10-19] MEDS ORDERED: FENTANYL PF 100MCG/2ML AMPUL ONE (03:25)
[2018-10-19] MEDS ORDERED: FENTANYL PF 100MCG/2ML AMPUL IV ONE (03:30)
--- NOTE | 2018-10-19 03:37 | NUR ---
CALLING NURSING SUP RE: NOT BEING ABLE TO REACH DR. GROSS. CONFERENCE CALL IN PROGRESS.
--- NOTE | 2018-10-19 03:40 | NUR ---
CALLED [facility] RE: DR. GROSS NOT RETURNING THE CALL. [facility] WAS CALLED AND PAGED.
--- NOTE | 2018-10-19 04:04 | NUR ---
CALLING [facility] RE: DR GROSS.
--- NOTE | 2018-10-19 04:23 | NUR ---
BLOOD TRANSFUSION INCREASED TO 328ML/HR.
--- NOTE | 2018-10-19 04:30 | NUR ---
REPORT GIVEN TO ICU FABRICIO CHÁVEZ FOR NINI.
[2018-10-19] MEDS ORDERED: ALBUTEROL FS 2.5 MG/3 ML VIAL.NEB ONE (04:32)
[2018-10-19] MEDS ORDERED: Z GUARD REMEDY 2 OZ OINT TP PRN (05:00)
[2018-10-19] MEDS ORDERED: ONDANSETRON HCL/PF 4 MG/2 ML VIAL IVP PRN (05:00)
[2018-10-19] MEDS ORDERED: IV LR 1000 ML 1,000 ML IV PRN (05:00)
[2018-10-19] MEDS ORDERED: ACETAMINOPHEN 650 MG/SUPP.RECT RC PRN (05:00)
--- NOTE | 2018-10-19 05:15 | NUR ---
ICU/RN-ADMITTED THIS 43 Y/O FEMALE FROM ER PER ACLS PROTOCOL. NURSING FOCUS:FLUID VOLUME DEFICIT R/T TO DIAGNOSIS:UPPER GI BLEED AND ANEMIA. ROUTINE ICU ADMISSION CARE INITIATED. PT. IS AWAKE, ALERT, EXPRESSIVE OF NEEDS. C/O ABDOMINAL PAIN, ABDOMEN IS DISTENDED AND TENDER. WILL MEDICATE NEEDED PER MD ORDER. W/ ONGOING BLOOD TRANSFUSION THE FIRST UNIT. PT. IS TO RECEIVE ONE MORE PC, W/ TOTAL OF 2 UNITS.. NOTED TO HAVE ABRASION ON SACRAL AREA. WASHED W/ SOAP AND WATER, PAT DRY W/ 4X4 AND COVERED W/ MEPILEX. AFEBRILE.
--- NOTE | 2018-10-19 05:30 | NUR ---
ICU/RN- PT. HAS ONLY ONE IV LINE RIGHT EJ, ONE MORE IV LINE G 22 INSERTED TO RIGHT UPPER ARM. WILL USE FOR NOW. Larissa SANTOS DNP HERE W/ ORDER TO SECURE CONSENT FOR PICC LINE. WILL GET CONSENT FROM PT. MADELINE.
[2018-10-19] MEDS: PANTOPRAZOLE 40 MG VIAL IV SCH ×2 (05:36→20:09)
[2018-10-19] MEDS: Magnesium 1GM/D5W 100ML PREMIX 100 ML IV SCH ×2 (05:36→06:50)
[2018-10-19 06:26] LABS: LYMPHOCYTES % (MANUAL) 10 % (16-48); MONOCYTES % (MANUAL) 5 % (0-11.0); NEUTROPHILS % (MANUAL) 85 (42-76)
--- NOTE | 2018-10-19 07:10 | NUR ---
ENERGY EFFICIENCY ENGINEER OPENING NOTES RECEIVED PT LYING ON BED.ALERT/ORIENTED X3.ON TELE HR IS 90;S WITH SR.ON ROOM AIR,TOLERATING WELL.NO SOB AND ACUTE DISTRESS NOTED.CAN AMBULATE AND STAND BY ASSISTANCE.IV LINE IS ON RIGHT EXTERNAL JUGULAR G18 AND HADLEY G22,SITE IS CLEAN DRY AND INTACT.BLOOD TRANSFUSION IS TRANSFUSING,VITAL SIGNS ARE CHECKED AND RECORDED,NO ADVERSE REACTIONS NOTED.SAFETY IS MAINTAINED AT ALL TIMES.BED IS IN LOW POSITION AND LOCKED.CALL LIGHT IS WITHIN REACH.WILL CONTINUE TO MONITOR THE PT CLOSELY.
[2018-10-19] MEDS: HYDROMORPHONE INJ 0.5 MG/0.5 ML SYRINGE IV PRN ×3 (07:15→16:32)
--- NOTE | 2018-10-19 07:30 | NUR ---
ICU/RN- PT. CALM, DENIES PAIN AT THIS TIME, JUST RECEIVED DILAUDID 0.5 MG SIVP PRN ORDER FOR ABD. PAIN 10/10 W/ ONGOING BT OF PRBC 2ND UNIT. THEN WILL CHECK CBC POST BT.
[2018-10-19 07:46] LABS: CALCIUM, SERUM 9.1 mg/dL (8.5-10.1); MAGNESIUM 2.2 mg/dL (1.8-2.4); PHOSPHORUS 6.1 mg/dL (2.5-4.9); POTASSIUM 5.2 mmol/L (3.5-5.1)
[2018-10-19] MEDS ORDERED: PANTOPRAZOLE 40 MG VIAL IV SCH (09:00)
--- NOTE | 2018-10-19 09:45 | NUR ---
SILO MAN NOTES PT WENT TO DO EGD TAKEN BY THE SURGICAL STAFFS.GI IS AT BEDSIDE.PT IS ALERT/ORIENTED X3.BLOOD TRANSFUSION IS CONTINUES.VITAL SIGNS CHECKED AND RECORDED.ALL THE CONSENTS AND CHECKLIST HAS SIGNED AND COMPLETED.
--- NOTE | 2018-10-19 11:00 | NUR ---
DIMENSION STONE QUARRY SUPERVISOR NOTES PT CAME BACK AFTER EGD AND ESOPHAGUS BANDING.PT IS ALERT/ORIENTED X2.BLOOD TRANSFUSION HAS DONE.NO ADVERSE REACTIONS NOTED.C/O PAIN.IV DILAUDID IS GIVEN.DR.HOOMAN BOOKER RECOMMEND TO INSERT FLOREZ CATHETER TO MONITOR STRICT I/O,BUT THE PT REFUSED.OFFERED X3,STILL REFUSED. CONTINUE TO MONITOR THE PT CLOSELY AND FOLLOW UP ABOUT THE FLOREZ CATHETER INSERTION DECISION.
[2018-10-19 11:46] LABS: BASOPHILS # (AUTO) 0.1 /CMM (0.0-0.2); BASOPHILS % (AUTO) 0.7 % (0.0-2.0); EOSINOPHILS % (AUTO) 1.3 % (0.0-6.0); HEMATOCRIT 22 % (33-45); HEMOGLOBIN 7.5 g/dL (11.5-14.8); LYMPHOCYTES # (AUTO) 1.9 /CMM (0.8-4.8); LYMPHOCYTES % (AUTO) 17.4 % (20.0-44.0); MEAN CORPUSCULAR HGB CONC 34 g/dl (31.0-36.0); MEAN CORPUSCULAR VOLUME 89 fL (82-100); MONOCYTES # (AUTO) 1.2 /CMM (0.1-1.30); MONOCYTES % (AUTO) 11.4 % (2.0-12.0); NEUTROPHILS # (AUTO) 7.5 /CMM (1.8-8.9); NEUTROPHILS % (AUTO) 69.2 % (43.0-81.0); PLATELET COUNT (AUTO) 148 /CMM (150-450); RED BLOOD CELL COUNT(AUTO) 2.48 MIL/uL (4.0-5.2); WHITE BLOOD COUNT (AUTO) 10.9 K/uL (4.3-11.0)
[2018-10-19] MEDS ORDERED: FEE PK DOSING 1 MIN EA MC ONE ×2 (11:47→18:54)
[2018-10-19] MEDS: IV D5/ 0.9% NACL 1,000 ML IV PRN (12:31)
[2018-10-19] MEDS ORDERED: VANCOMYCIN 1.25 GM in IV D5W 500 ML IV ONE (13:00)
--- NOTE | 2018-10-19 19:13 | NUR ---
RN NOTE 1300: Received report from Renata Miranda for NINI. Patient resting well. Room air, tolerated. Per report, patient refused for PICC insertion and HD cath insertion. Offered again to patient but still does not want to have today, she wants tot alk to MD tomorrow. 1500: Spoke with father via phone and updated re: patient qand let him talk to patient to comply on care. 1900: No any significant changes noted. Kept clean, warm and dry. Needs attended. Kept call light at reach. Able to go to BSC with assistance. PIVs intact. IVF infusing as ordered. Endorsed to next shift.
--- NOTE | 2018-10-19 19:30 | NUR ---
APPOINTMENT COORDINATOR: RECEIVED PT A/O X 3. ON ROOM AIR WT NO ACUTE DISTRESS. PT IS ANXIOUS AND WORRIED ABOUT HER CONDITION WT EPISODES OF CRYING. ALSO C/O ABDOMINAL PAIN (10). RELAXATION TECHNIQUE RENDERED WT GOOD EFFECT AND ABLE TO TOLERATE PAIN LEVEL UNTIL PAIN MED IS DUE. SR ON STAFF PHARMACIST HOSPITAL. AFEBRILE. ON S/P EGD WT BANDING D/T ESOPHAGEAL VARICES WT NO ACTIVE BLEEDING. VERBALIZED TO SIT ON BEDSIDE COMMODE TO URINATE BUT NO URINE COMING OUT. S/P BLOOD TRANSFUSION WT NO ASE. SAFETY PRECAUTION NOTED AT ALL TIMES. CALL LIGHT KEPT WITHIN REACH. WILL CONTINUE TO MONITOR.
[2018-10-19] MEDS: CEFTRIAXONE 1 G in IV D5W 50 ML IV SCH (20:09)
[2018-10-19] MEDS: HYDROMORPHONE 1 MG/1 ML DISP.SYRIN IV PRN (20:30)
[2018-10-20] VITALS (22 sets, daily range): BP systolic 94–142; BP diastolic 29–77
[2018-10-20] MEDS: HYDROMORPHONE 1 MG/1 ML DISP.SYRIN IV PRN ×6 (00:28→23:48)
[2018-10-20 04:58] LABS: BASOPHILS # (AUTO) 0.1 /CMM (0.0-0.2); BASOPHILS % (AUTO) 1.2 % (0.0-2.0); EOSINOPHILS % (AUTO) 2.5 % (0.0-6.0); HEMATOCRIT 23 % (33-45); HEMOGLOBIN 7.8 g/dL (11.5-14.8); LYMPHOCYTES % (AUTO) 12.6 % (20.0-44.0); MEAN CORPUSCULAR HGB CONC 34 g/dl (31.0-36.0); MEAN CORPUSCULAR VOLUME 90 fL (82-100); MONOCYTES # (AUTO) 0.9 /CMM (0.1-1.30); MONOCYTES % (AUTO) 11.5 % (2.0-12.0); NEUTROPHILS # (AUTO) 5.8 /CMM (1.8-8.9); NEUTROPHILS % (AUTO) 72.2 % (43.0-81.0); PLATELET COUNT (AUTO) 162 /CMM (150-450); RED BLOOD CELL COUNT(AUTO) 2.57 MIL/uL (4.0-5.2)
[2018-10-20 05:12] LABS: ALANINE AMINOTRANSFERASE 11 U/L (12-78); ALBUMIN 2.9 g/dL (3.4-5.0); ALKALINE PHOSPHATASE 112 U/L (46-116); ASPARTATE AMINOTRANSFERASE 28 U/L (15-37); BILIRUBIN,TOTAL 1.6 mg/dL (0.2-1.0); CALCIUM, SERUM 8.9 mg/dL (8.5-10.1); CARBON DIOXIDE 25 mmol/L (21-32); CHLORIDE 99 mmol/L (98-107); CREATININE 5.7 mg/dL (0.6-1.3); GLUCOSE 119 mg/dL (74-106); MAGNESIUM 2.2 mg/dL (1.8-2.4); POTASSIUM 5.2 mmol/L (3.5-5.1); SODIUM SERUM 136 mmol/L (136-145); TOTAL PROTEIN, SERUM 7.2 g/dL (6.4-8.2)
[2018-10-20 05:20] LABS: CHOLESTEROL 42 mg/dL (<200); HDL CHOLESTEROL < 10 mg/dL (40-60); LDL 25 mg/dL (0-99); THYROID STIMULATING HORMONE 7.758 uIU/mL (0.358-3.74); TRIGLYCERIDES 77 mg/dL (30-150)
[2018-10-20 05:34] LABS: UREA NITROGEN, BLOOD 92 mg/dL (7-18)
--- NOTE | 2018-10-20 06:30 | NUR ---
IRRIGATING PUMP OPERATOR: RECEIVED BUN=92 FROM 101. OLIGURIC. PT REMAINED A/O X 3. C/O ABDOMINAL DISTENTION DURING THE SHIFT AND GIVEN DILAUDID NEEDED WT GOOD EFFECT. VS WITHIN HER BASELINE. NO ACTIVE BLEEDING. SAFETY PRECAUTION NOTED AT ALL TIMES.
[2018-10-20] MEDS: PANTOPRAZOLE 40 MG VIAL IV SCH ×2 (08:19→20:15)
[2018-10-20] MEDS ORDERED: GABA-534 PO (08:52)
--- NOTE | 2018-10-20 09:51 | NUR ---
RN NOTE 0715: Received patient awake, A/Ox4, SR on the monitor. No respiratory distress noted, tolerated room air. With PIVs intact, IVF infusing as ordered. With distended abd secondary to ascites. Awaiting nephro rounds. No active bleeding noted at this time. Still with frequent small amount during urination per previous shift. 0915: S/E by Dr. Robbins, discussed POC, will hold HD for now per MD. 0950: S/E by Dr Mckeon, with order to advance diet to Full liquids.
[2018-10-20] MEDS: IV D5/ 0.9% NACL 1,000 ML IV PRN ×2 (09:59→23:47)
--- NOTE | 2018-10-20 18:09 | NUR ---
RN NOTE 1200: S/E by Hiren SCHWARZ. With order to may transfer to [facility] and will do paracentesis, patient signed consent but wants to have it tomorrow instead of today, ANODIZER agreed. 1630: Patient HADLEY PIV infiltrated, With REJ intact. Patient does not want to have additional PIV. 1800: No any significant changes noted at this time. Kept clean, warm and dry. Needs attended. Still noted with frequent voiding but small amount.
[2018-10-20] MEDS ORDERED: VANCOMYCIN 500 MG in IV D5W 100 ML IV PRN (19:00)
--- NOTE | 2018-10-20 20:00 | NUR ---
RN INITIAL NOTE UPON ASSESSMENT, PT IS AOX3, EXPERIENCING VERY LITTLE PAIN FROM ASCITES (SCORE 1). IS RECEIVING D5NS 75ML/H VIA REJ 18G. EXPERIENCING BILATERAL LE EDEMA, PITTING 1+. CONSUMES 360ML OF JUICE (CLEAR LIQUID DIET) & 1 VOID IN BSC. SATING AT 100% ON NC 2L. PREPARING FOR TRANSFER TO [facility] UNIT AT 2100.
--- NOTE | 2018-10-20 20:00 | NUR ---
[facility]/ACADEMIC AFFAIRS COORDINATOR NOTED: RECEIVED PT. VIA ROB W/ NURSE TRISTAN CHÁVEZ FROM ICU AT ABOUT 2109. PT. IS A/O X 3-4. C/O ABDOMINAL PAIN. ON TELE MONITOR W/ SR. CONTINENT OF B/B. ABLE TO AMBULATE WITH ASSIST. HAS RIGHT EJ G 10 PATENT AND INTACT W/ NO S/S OF INFECTION /INFILTRATION NOTED. W/ D5NS GOING AT 75 CC/HR. LESLIE. FOR PARACENTESIS LESLIE. ROSE. BEDS LOCKED AND IN LOW CONDITION.
[2018-10-20] MEDS: CEFTRIAXONE 1 G in IV D5W 50 ML IV SCH (20:15)
--- NOTE | 2018-10-20 21:16 | NUR ---
COMPUTER EQUIPMENT INSTALLER NOTES REPORT GIVEN TO AVERY. PT TRANSFERRED TO [facility] 116-2. PT IN STABLE CONDITION. ALL PERSONAL BELONGS WITH PT.
[2018-10-21] VITALS (9 sets, daily range): BP systolic 95–117; BP diastolic 62–81
[2018-10-21] MEDS: HYDROMORPHONE 1 MG/1 ML DISP.SYRIN IV PRN ×5 (06:52→22:43)
[2018-10-21 07:07] LABS: BASOPHILS # (AUTO) 0.1 /CMM (0.0-0.2); BASOPHILS % (AUTO) 0.9 % (0.0-2.0); EOSINOPHILS % (AUTO) 2.4 % (0.0-6.0); LYMPHOCYTES # (AUTO) 1.3 /CMM (0.8-4.8); MEAN CORPUSCULAR HGB CONC 34 g/dl (31.0-36.0); MEAN CORPUSCULAR VOLUME 92 fL (82-100); MONOCYTES # (AUTO) 1.1 /CMM (0.1-1.30); MONOCYTES % (AUTO) 17.4 % (2.0-12.0); NEUTROPHILS # (AUTO) 3.7 /CMM (1.8-8.9); NEUTROPHILS % (AUTO) 58.3 % (43.0-81.0); PLATELET COUNT (AUTO) 120 /CMM (150-450); RED BLOOD CELL COUNT(AUTO) 2.03 MIL/uL (4.0-5.2); WHITE BLOOD COUNT (AUTO) 6.3 K/uL (4.3-11.0)
[2018-10-21 07:15] LABS: HEMATOCRIT 19 % (33-45); HEMOGLOBIN 6.2 g/dL (11.5-14.8)
[2018-10-21 07:28] LABS: CALCIUM, SERUM 8.3 mg/dL (8.5-10.1); CREATININE 5.2 mg/dL (0.6-1.3); POTASSIUM 4.9 mmol/L (3.5-5.1)
--- NOTE | 2018-10-21 07:32 | NUR ---
[facility]/RN NOTES: REPORT GIVEN TO NEXT SHIFT NURSE FOR NINI.
[2018-10-21] MEDS: PANTOPRAZOLE 40 MG VIAL IV SCH ×2 (08:22→21:15)
[2018-10-21 10:09] LABS: EOSINOPHILS % (MANUAL) 3 % (0-4); LYMPHOCYTES % (MANUAL) 32 % (16-48); MONOCYTES % (MANUAL) 15 % (0-11.0); NEUTROPHILS % (MANUAL) 50 (42-76)
[2018-10-21] MEDS ORDERED: VANCOMYCIN 1 GM in IV D5W 250 ML IV SCH (16:00)
--- NOTE | 2018-10-21 16:59 | NUR ---
RNNOTE PT REFUSED PARACENTESIS TO BE DONE TODAY, WANTS IT DONE TOMORROW. CeQur TECH IS AWARE AND SHE WILL NOTIFY RADIOLOGIST. WILL MD KNOW
--- NOTE | 2018-10-21 17:07 | NUR ---
Called in for stat US Guided Paracentesis. Patient refused procedure after images were collected. Modified ultrasound order to Abdomen Limited Fast. Informed SAIRA Blair to reorder paracentesis for tomorrow.
--- NOTE | 2018-10-21 18:00 | NUR ---
RN NOTE PT HAD 1 UNIT PRBC, TRANSFUSED ,TOLERATED WELL, NO REACTION S/S NOTED.
--- NOTE | 2018-10-21 19:00 | NUR ---
RN NOTES RECEIVED PATIENT AWAKE,ALERT,NOT IHN ANY DISTRESS,AMBULATORY WITH GODD BALANCE AND GOOD GAIT.CONVERSES,ANSWERS APPROPRIATELY BUT WITH PERIODS OF FORGETFULNESS AND INCOHERENCE.(+) ASCITES,+ BILATERAL LE EDEMA.NEEDS ATTENDED.WILL CLOSELY MONITOR FOR ANY BLEEDING,PATIENT FOR PARACENTESIS IN AM.
[2018-10-21] MEDS: IV D5/ 0.9% NACL 1,000 ML IV PRN (20:02)
[2018-10-21] MEDS: CEFTRIAXONE 1 G in IV D5W 50 ML IV SCH (20:02)
[2018-10-21 22:37] LABS: BASOPHILS # (AUTO) 0.1 /CMM (0.0-0.2); BASOPHILS % (AUTO) 0.7 % (0.0-2.0); EOSINOPHILS % (AUTO) 2.2 % (0.0-6.0); HEMATOCRIT 25 % (33-45); HEMOGLOBIN 8.5 g/dL (11.5-14.8); LYMPHOCYTES # (AUTO) 1.7 /CMM (0.8-4.8); LYMPHOCYTES % (AUTO) 20.8 % (20.0-44.0); MEAN CORPUSCULAR HGB CONC 34 g/dl (31.0-36.0); MEAN CORPUSCULAR VOLUME 91 fL (82-100); MONOCYTES # (AUTO) 1.2 /CMM (0.1-1.30); MONOCYTES % (AUTO) 15.1 % (2.0-12.0); NEUTROPHILS % (AUTO) 61.2 % (43.0-81.0); PLATELET COUNT (AUTO) 151 /CMM (150-450); RED BLOOD CELL COUNT(AUTO) 2.79 MIL/uL (4.0-5.2); WHITE BLOOD COUNT (AUTO) 8.2 K/uL (4.3-11.0)
--- NOTE | 2018-10-21 23:52 | NUR ---
RN NOTES REMAINS STABLE,AWAKE,ALERT,(-) BLEEDING. CARE GIVEN /REPORT GIVEN TO TRISTAN CHÁVEZ
[2018-10-22] VITALS: BP 96/60
--- NOTE | 2018-10-22 | NUR ---
RN INITIAL NOTES REPORT GIVEN BY RAMON. RECEIVED PATIENT AWAKE,ALERT,NOT IN ANY DISTRESS,(+) ASCITES,+ BILATERAL LE EDEMA.NEEDS ATTENDED.WILL CLOSELY MONITOR. PATIENT FOR PARACENTESIS IN AM.
[2018-10-22] MEDS: HYDROMORPHONE 1 MG/1 ML DISP.SYRIN IV PRN ×4 (03:01→18:44)
[2018-10-22 04:00] VITALS: BP 96/60
--- NOTE | 2018-10-22 06:49 | NUR ---
RN CLOSING NOTES PT REFUSED AM LABS. NO CHANGE IN PTS CONDITION OVERNIGHT. WILL ENDORSE TO AM RN FOR NINI.
--- NOTE | 2018-10-22 07:00 | NUR ---
RN OPENING NOTES PT RESTING IN BED. NO COMPLAINTS OF PAIN, SOB OR DISTRESS AT THIS TIME. PT HAS A RIGHT WRIST #20 D5NS@75 ML/HR. PT DISCONNECTED SELF FROM TELE MONITOR. ENCOURAGED TO RECONNECT. PT WAS MONITORED AT BEFORE DISCONNECTION. WILL CONTINUE TO ENCOURAGE HER TO CONNECT TO TELE MONITOR. PT SCHEDULED FOR PARACENTESIS TODAY. SAFETY PRECAUTIONS IN PLACE, BED IN LOWEST LOCKED POSITION, X2 SIDE RAILS UP AND CALL LIGHT WITHIN REACH. WILL CONTINUE TO MONITOR.
--- NOTE | 2018-10-22 08:00 | NUR ---
RN NOTES PT REFUSED 0800 VITAL SIGNS.
[2018-10-22 08:25] LABS: BASOPHILS # (AUTO) 0.1 /CMM (0.0-0.2); BASOPHILS % (AUTO) 0.7 % (0.0-2.0); EOSINOPHILS % (AUTO) 1.8 % (0.0-6.0); HEMATOCRIT 24 % (33-45); LYMPHOCYTES # (AUTO) 1.6 /CMM (0.8-4.8); LYMPHOCYTES % (AUTO) 17.7 % (20.0-44.0); MEAN CORPUSCULAR HGB CONC 33 g/dl (31.0-36.0); MEAN CORPUSCULAR VOLUME 92 fL (82-100); MONOCYTES # (AUTO) 1.6 /CMM (0.1-1.30); MONOCYTES % (AUTO) 17.8 % (2.0-12.0); NEUTROPHILS # (AUTO) 5.5 /CMM (1.8-8.9); PLATELET COUNT (AUTO) 147 /CMM (150-450); RED BLOOD CELL COUNT(AUTO) 2.64 MIL/uL (4.0-5.2); WHITE BLOOD COUNT (AUTO) 8.8 K/uL (4.3-11.0)
--- NOTE | 2018-10-22 08:34 | NUR ---
RN NOTES PT STATED THAT SHE NEEDS TO LEAVE AND GO HOME TO RUN A FEW ERRANDS. EXPLAINED TO THE PATIENT THAT WHILE SHE IS ADMITTED, SHE NEEDS TO STAY AT THE HOSPITAL BECAUSE WE ARE TAKING CARE OF HER. IF SHE DECIDES TO LEAVE IT WOULD BE AGAINST MEDICAL ADVICE. EXPLAINED TO THE PATIENT THAT SHE IS SCHEDULED FOR AN ULTRA SOUND GUIDED PARACENTESIS. PT STATED THAT SHE HAS "THINGS SHE NEEDS TO DO". EXPLAINED TO THE PATIENT IF SHE LEAVES THE HOSPITAL THAT SHE WOULD HAVE TO BE READMITTED AND AT THAT WOULD PROLONG HER TREATMENT. INFORMED CHARGE NURSE TEA AND DR TIMMONS.
[2018-10-22 08:44] LABS: CALCIUM, SERUM 8.4 mg/dL (8.5-10.1); CREATININE 4.1 mg/dL (0.6-1.3); POTASSIUM 4.6 mmol/L (3.5-5.1)
[2018-10-22] MEDS: PANTOPRAZOLE 40 MG VIAL IV SCH ×2 (08:46→21:28)
[2018-10-22] MEDS ORDERED: ACET650S11 RC (11:32)
--- NOTE | 2018-10-22 12:00 | NUR ---
RN NOTES PT REFUSED 1200 VITAL SIGNS.
[2018-10-22 16:00] VITALS: BP 96/58
[2018-10-22] MEDS: IV D5/ 0.9% NACL 1,000 ML IV PRN (17:32)
[2018-10-22 19:48] VITALS: BP 104/66
[2018-10-22 20:00] VITALS: BP 104/66
--- NOTE | 2018-10-22 20:00 | NUR ---
MICRO COMPUTER DATA PROCESSOR OPENING NOTES RECEIVED REPORT FROM MEGHAN CHÁVEZ. PATIENT A/A/O X4, ABLE TO MAKE NEEDS KNOWN. BREATHING EVEN & UNLABORED, TOLERATING ROOM AIR. REFUSES TO WEAR TELE LEADS. RADIAL PULSES PRESENT & BOUNDING. RIGHT WRIST IV #20 INTACT & PATENT W/ DRESSING CDI, PATIENT REFUSES TO BE CONNECTED TO IVF. DENIES ANY PAIN OR DISCOMFORT @ THIS TIME & ABLE TO AMBULATE INDEPENDENTLY. AWAITING DISCHARGE TO HOME.
[2018-10-22] MEDS: CEFTRIAXONE 1 G in IV D5W 50 ML IV SCH (20:46)
--- NOTE | 2018-10-22 23:12 | NUR ---
SALES ASSISTANTS AND SALESPERSONS NOTES PATIENT DISCHARGED BACK TO HOME & LEFT @ 7232. IV REMOVED, DISCHARGE INSTRUCTIONS GIVEN & PAPERWORK SIGNED.
== END 2018-10-22 23:08 | disposition home or self-care (01) | DRG 280 ==
LOC: ER 01:04 → ICU 03:46 → OBSVTOIN 03:46 → TELE-TD 10-20 21:03 → TELE1 10-21 17:11
PROVIDERS: ADMIT Hospitalist
PROC: 06L38CZ Occlusion of Esophageal Vein with Extraluminal Device, Via Natural or Artificial Opening Endoscopic (ICD-10-PCS; principal; 2018-10-19)
PROC: 30233N1 Transfusion of Nonautologous Red Blood Cells into Peripheral Vein, Percutaneous Approach (ICD-10-PCS; principal; 2018-10-19)
PROC: 02HV33Z Insertion of Infusion Device into Superior Vena Cava, Percutaneous Approach (ICD-10-PCS; 2018-10-22)
PROC: B548ZZA Ultrasonography of Superior Vena Cava, Guidance (ICD-10-PCS; 2018-10-22)
PROC: 0W9G3ZZ Drainage of Peritoneal Cavity, Percutaneous Approach (ICD-10-PCS; 2018-10-22)
DX: K70.31 Alcoholic cirrhosis of liver with ascites (principal); N17.0 Acute kidney failure with tubular necrosis; I85.11 Secondary esophageal varices with bleeding; E44.0 Moderate protein-calorie malnutrition; K92.0 Hematemesis; E87.1 Hypo-osmolality and hyponatremia; E87.5 Hyperkalemia; D62 Acute posthemorrhagic anemia; E83.42 Hypomagnesemia; L03.115 Cellulitis of right lower limb; L03.116 Cellulitis of left lower limb; I25.10 Atherosclerotic heart disease of native coronary artery without angina pectoris; K76.6 Portal hypertension; K31.89 Other diseases of stomach and duodenum; N63.10 Unspecified lump in the right breast, unspecified quadrant; K44.9 Diaphragmatic hernia without obstruction or gangrene; F10.10 Alcohol abuse, uncomplicated; I10 Essential (primary) hypertension; I25.2 Old myocardial infarction; E78.5 Hyperlipidemia, unspecified; F17.200 Nicotine dependence, unspecified, uncomplicated
CPT/HCPCS: 36415; 71045-TC; 76700-TC; 76942-TC; 80048-TC; 80053-TC; 80061-TC; 80076-TC; 80202-TC; 82962-TC; 83690-TC; 83735-TC; 84100-TC; 84443-TC; 84484-TC; 84703-TC; 85025-TC; 85610-TC; 85730-TC; 86850-TC; 86921-TC; 87070-TC; 87081-TC; 88305-TC; 88312-TC; 89051-TC; C9113; G0378; J0696; J1170; J1815; J2354; J2405; J2704; J3010; J3370; J3475; J7030; J7040; J7042; J7050; J7060; J7120; P9016-BL

== ENCOUNTER 2019-10-02 02:51 | Emergency (ER) | payer MEDICAID, OTHER ==
[~2019-10-02] VITALS: Ht 170.2 cm; Wt 65.8 kg
[~2019-10-02 02:51] MED LIST changes: +ACET650S11 RC; -BUME2TAB3 PO; +GABA-534 PO; -GABA300C PO; -SPIR50TA5 PO; -TEMA15CA PO
--- NOTE | 2019-10-02 03:15 | NUR ---
BIBRA C/O N/V X1 WEEK, VOMITING BLOOD AND LOWER ABD PAIN SINCE TODAY. MD AT BEDSIDE FOR EVAL. VSS.
[2019-10-02] MEDS ORDERED: ONDANSETRON HCL/PF 4 MG/2 ML VIAL ONE ×2 (03:19→06:13)
--- NOTE | 2019-10-02 03:21 | NUR ---
URINE SENT TO LAB
[2019-10-02] MEDS ORDERED: ONDANSETRON HCL/PF 4 MG/2 ML VIAL IVP ONE (03:30)
[2019-10-02] MEDS ORDERED: IV NS 0.9% 500 ML BAG IV ONE (03:30)
[2019-10-02 03:41] LABS: BASOPHILS # (AUTO) 0.1 /CMM (0.0-0.2); CALCIUM, SERUM 8.5 mg/dL (8.5-10.1); CREATININE 1.1 mg/dL (0.6-1.3); EOSINOPHILS % (AUTO) 0.9 % (0.0-6.0); HEMATOCRIT 40 % (33-45); HEMOGLOBIN 13.6 g/dL (11.5-14.8); LYMPHOCYTES # (AUTO) 2.2 /CMM (0.8-4.8); LYMPHOCYTES % (AUTO) 22.1 % (20.0-44.0); MEAN CORPUSCULAR HGB CONC 34 g/dl (31.0-36.0); MEAN CORPUSCULAR VOLUME 92 fL (82-100); MONOCYTES # (AUTO) 1.3 /CMM (0.1-1.30); MONOCYTES % (AUTO) 13.4 % (2.0-12.0); NEUTROPHILS # (AUTO) 6.2 /CMM (1.8-8.9); NEUTROPHILS % (AUTO) 62.6 % (43.0-81.0); PLATELET COUNT (AUTO) 172 /CMM (150-450); POTASSIUM 3.2 mmol/L (3.5-5.1); RED BLOOD CELL COUNT(AUTO) 4.38 MIL/uL (4.0-5.2)
[2019-10-02 03:47] LABS: ALBUMIN 3.1 g/dL (3.4-5.0); BILIRUBIN,DIRECT 0.5 mg/dL (0.0-0.2); BILIRUBIN,TOTAL 0.9 mg/dL (0.2-1.0); TOTAL PROTEIN, SERUM 8.3 g/dL (6.4-8.2)
--- NOTE | 2019-10-02 04:00 | NUR ---
REPORT REC'D FROM SAIRA SALAZAR FOR NINI.
[2019-10-02 04:17] LABS: APPEARANCE,URINE Clear (CLEAR); BILIRUBIN,URINE Negative (NEGATIVE); BLOOD, URINE Small Ery/uL (NEGATIVE); COLOR,URINE Yellow (YELLOW); KETONES,URINE Negative (NEGATIVE); LEUKOCYTE ESTERASE ,URINE Negative (NEGATIVE); NITRITE, URINE Negative (NEGATIVE); PROTEIN,URINE Negative (NEGATIVE); UGLUCOSE Negative (NEGATIVE); UROBILINOGEN,URINE 0.2 EU/dL (0.2)
[2019-10-02] MEDS ORDERED: MORPHINE SULFATE INJ 4 MG/ML DISP.SYRIN ONE ×2 (04:24→06:45)
[2019-10-02] MEDS ORDERED: MORPHINE SULFATE INJ 2 MG/ML DISP.SYRIN IV ONE ×2 (04:30→07:00)
[2019-10-02 04:44] LABS: BACTERIA,URINE Few /HPF (None Seen); SQUAMOUS EPITHELIAL CELL,UR Moderate /HPF (None Seen)
[2019-10-02] MEDS ORDERED: PANTOPRAZOLE 80 MG in IV NS 0.9% 500 ML IV ONE (05:00)
[2019-10-02] MEDS ORDERED: PANTOPRAZOLE 40 MG VIAL ONE (05:05)
--- NOTE | 2019-10-02 05:05 | NUR ---
ADDENDUM: Intravenous End Time Documentation: 1. Protonix 40 mg IVP : start time: 0505 AM ; end time: 0506 AM : IV site: RFA PIV # 20 Port # 1 2. Protonix 80 mg IVPB: start time: 0507 AM; end time: infusing during transfer to [facility] (0835 AM) : IV site: RFA PIV # 20 Port # 2 Time of transfer to [facility]-8:35 AM
--- NOTE | 2019-10-02 05:15 | NUR ---
CALLING [facility] RE: CT READ
[2019-10-02] MEDS ORDERED: CEFTRIAXONE 1GM BAG (ER ONLY) 50 ML IV ONE (06:12)
--- NOTE | 2019-10-02 06:20 | NUR ---
PT IS C/O NAUSEA AT THIS TIME. DR DALTON NOTIFIED.
[2019-10-02] MEDS ORDERED: CEFTRIAXONE 1GM BAG (ER ONLY) 1 GM/50 ML PIGGYBACK IV ONE (06:30)
[2019-10-02] MEDS ORDERED: ONDANSETRON HCL/PF - ER 4 MG/2 ML VIAL IV ONE (06:30)
--- NOTE | 2019-10-02 06:30 | NUR ---
DR DALTON IS TALKING TO DR BOSS AT [facility] RE: TRANSFERRING PT.
--- NOTE | 2019-10-02 06:41 | NUR ---
DR. DALTON ON THE PHONE WITH DR. GIFFORD FROM [facility].
--- NOTE | 2019-10-02 06:51 | NUR ---
PT IS C/O PAIN. MD NOTIFIED. NEW ORDERS GIVEN.
--- NOTE | 2019-10-02 07:10 | NUR ---
REPORT GIVEN TO SAIRA KLINE FOR NINI.
--- NOTE | 2019-10-02 07:20 | NUR ---
patient in bed, awake, in no distress. connected to the monitor and pulse ox. Will Continue to monitor accordingly.
--- NOTE | 2019-10-02 08:08 | NUR ---
RECIEVED A CALL FROM COLTON ([phone]) FROM [facility]. PATIENT ACCEPTED TO [facility]. BY DR. YAP. TO ROOM 315-B. ACCEPTING NURSE: SAIRA GRAHAM [phone]. NEUROSCIENCE SPECIALIST TIME AT 0900 BY JANAE (TRIP#[id number]).
--- NOTE | 2019-10-02 08:35 | NUR ---
REPORT GIVEN TO SANTOS AT [facility]. TRANSFER AMBULANCE AT BEDSIDE.
[2019-10-02 08:39] VITALS: BP 101/62
== END 2019-10-02 08:57 ==
LOC: ER 02:52
DX: K92.2 Gastrointestinal hemorrhage, unspecified (principal); K70.31 Alcoholic cirrhosis of liver with ascites; R11.2 Nausea with vomiting, unspecified; F10.20 Alcohol dependence, uncomplicated; I25.2 Old myocardial infarction; Y90.9 Presence of alcohol in blood, level not specified; Z85.3 Personal history of malignant neoplasm of breast; Z98.890 Other specified postprocedural states; Z79.899 Other long term (current) drug therapy
CPT/HCPCS: 36415; 74176; 80048; 80076; 81001; 83690; 84703; 85025; 85730; 87081; 87086; 96365; 96366; 96368; 96375; 96376; 99285; C9113; J0696; J2270 ×2; J2405 ×3; J7040; 81000-TC